=== PATIENT | male | born 1945 | race Caucasian/White ===

== ENCOUNTER → 2022-07-29 11:12 | Outpatient (BNVA) | payer MEDICARE, SELFPAY | PROVIDERS: PCP Family Medicine; Visit Provider Physician Assistant | DX: Z86.010 Personal history of colon polyps (principal) | CPT/HCPCS: 99202 ==

== ENCOUNTER 2023-02-10 05:59 | Day surgery (SDC) | payer MEDICARE, SELFPAY ==
[2022-12-03 15:22] VITALS: BMI 25.9
--- NOTE | 2023-02-09 10:49 | HO.ANESPROP2 ---
HPI - Anesthesia Eval Consult details Narrative: 77yo M for Colonoscopy PMFSH Active Problems Active Problems: All Active Problems (Updated 02/09/23 @ 10:04 by Isha Best) History of colon polyps (Acute) Past Medical History Medical History Fatty liver History of COVID-19 Asbestos exposure Surgical History Surgical History (Updated 02/15/23 @ 10:08 by Joelle Asher) Hx of colonoscopy History of cataract surgery History of thoracotomy Social History Social History Household Members: Family Alcohol intake: current Alcohol intake frequency: holidays/special occasions only Patient Tobacco Use Status: Former Tobacco user Quit Date: 30 years ago Meds Allergies Allergy/AdvReac Type Severity Reaction Status Date / Time No Known Allergies Allergy Verified 07/29/22 11:19 Home Medications Medication Instructions Recorded Confirmed Last Taken Type cholecalciferol (vitamin D3) 25 25 mcg PO DAILY 07/29/22 12/03/22 Unknown History mcg (1,000 unit) capsule coenzyme Q10 100 mg capsule 100 mg PO DAILY 07/29/22 12/03/22 Unknown History (CoQ-10) multivitamin 1 tab PO DAILY 07/29/22 12/03/22 Unknown History Exam Exam Date and Time: February 09, 2023 1049 Height,Weight and Vital Signs: Height 6 ft 2 in Weight 91.626 kg Assessment and Plan Assessment Anesthesia Assessment: Chart Reviewed
[2023-02-10 06:17] VITALS: BP 145/92; PULSE 64; RESP 18; TEMP 36.2; O2SAT 96; BMI 26.1
[2023-02-10] MEDS: Lactated Ringers 1,000 ML 100 ML IVCONT (06:37)
--- NOTE | 2023-02-10 07:27 | P.CONAN_ITS ---
[facility] Active Problems Active Problems: All Active Problems (Updated 02/09/23 @ 10:04 by Isha Best) History of colon polyps (Acute) Past Medical History Medical History Fatty liver History of COVID-19 Asbestos exposure Functional capacity: independent ambulation Family History Family history of problems with anesthesia: No Surgical History Surgical History History of cataract surgery History of thoracotomy History of Problems with Anesthesia: No Social History Social History Household Members: Family Alcohol intake: current Alcohol intake frequency: holidays/special occasions only Patient Tobacco Use Status: Former Tobacco user Quit Date: 30 years ago Use of substances other than those prescribed or required for medical reasons: No Are you DNR?: No Advance Directives: No Advance Directives Information Provided: Yes Meds Allergies Allergy/AdvReac Type Severity Reaction Status Date / Time No Known Allergies Allergy Verified 07/29/22 11:19 Active Medications: Current Medications Lactated Ringer's (Lr) 1,000 mls @ 100 mls/hr IVCONT .Q10H MC Last Admin: 02/10/23 06:37 Dose: 100 mls/hr Home Medications Medication Instructions Recorded Confirmed Last Taken Type cholecalciferol (vitamin D3) 25 25 mcg PO DAILY 07/29/22 12/03/22 Unknown History mcg (1,000 unit) capsule coenzyme Q10 100 mg capsule 100 mg PO DAILY 07/29/22 12/03/22 Unknown History (CoQ-10) multivitamin 1 tab PO DAILY 07/29/22 12/03/22 Unknown History Exam Exam Date and Time: February 10, 2023 0727 Height,Weight and Vital Signs: Height 6 ft 2 in Weight 92.079 kg Last Vital Signs Temp 97.2 F 02/10/23 06:17 Pulse 64 02/10/23 06:17 Resp 18 02/10/23 06:17 BP 145/92 H 02/10/23 06:17 Pulse Ox 96 02/10/23 06:17 O2 Del Method Room Air 02/10/23 06:17 Airway Mallampati Class: II TM Dist: >3cm Neck ROM: Full Heart: RRR Lungs: CTA Assessment and Plan Final Anesthetic Review Family History of Problems with Anesthesia: No History of Problems with Anesthesia: No NPO: Yes ASA Class: II Final Preanesthetic Review: Meds/Allgs Chart Reviewed, Consent Obtained/Reviewed and Anes Risks/Benef Reviewed Patient Risk: Low Procedure Risk: Low Anesthetic Plan Anesthetic Plan: MAC: Disposition: Standard PACU
--- NOTE | 2023-02-10 07:48 | MHC.SHP ---
Pre-Procedural Eval Section A Date of Service: 02/10/23 Section B Chief Complaint: Personal history of colonic polyps Details of Present Illness: History of thoracotomy Relevant Family History (Specify if Yes): No Relevant Social History: None Present Medications: see Short Stay Collaborative assessment Medical History: No relevant PMH Allergies: Allergies Allergy/AdvReac Type Severity Reaction Status Date / Time No Known Allergies Allergy Verified 07/29/22 11:19 Review of Systems Review of Systems Comment: Ten point ROS negative Exam Exam Comment: Gen appear: No acute distress HEENT: no icterus Chest: No overt resp distress Abd: soft, nontender, nondistended Psych: Stable affect, answering questions appropriately Neuro: A/Ox3 noted to move all extremities spontaneously Ext: no peripheral edema Plan Diagnosis/Plan: Unchanged I have reviewed the history and physical and performed a pertinent physical examination on my patient. No changes have occurred unless specified. Time Spent With Patient Time: Total time managing care of this patient today ____ minutes.
--- NOTE | 2023-02-10 07:49 | P.OP_ITS ---
Operative Note Operative Note Date of Service: 02/10/23 Narrative: Procedure: Colonoscopy Indication: Personal history of polyps Endoscopist: Libertad Conti MD Anesthesia Provider: Dr Lyly De La Garza Anesthesia type: MAC Instrument: Olympus [id number]-[id number] Consent: Indication, risks vs benefits, and alternatives were discussed with the patient who gave written informed consent to proceed. EKG, pulse, pulse oximetry and blood pressure were monitored throughout the procedure. Please see anesthesia flowsheet. Procedure: The patient was brought to the procedure room and placed in the left lateral decubitus position. IV medications were administered by the anesthesia provider in attendance. A digital rectal exam was performed which was normal. A distal attachment cap was affixed to the tip of the colonoscope which was then inserted through the anus and advanced through the colon to the cecum at 80 cm,and terminal ileum. Ileocecal valve and appendiceal orifice were identified. Mucosa was carefully examined under high definition white light as the instrument was slowly withdrawn in a retrograde panoramic fashion. Retroflexion was performed in rectum. The procedure was not difficult. There were no immediate obvious complications. The quality of the prep was BBPS: 2+2+3 = adequate Withdrawal time 12 minutes. Limitations: No limitations. Findings: Mucosa: Normal to cecum and terminal ileum. Protruding lesions: * Medium internal hemorrhoids without stigmata of recent bleeding. Excavated lesions: * Severe diverticulosis of left sided colon. Impression: 1. Normal colon and terminal ileummucosa 2. Diverticulosis 3. Internal hemorrhoids Recommendations: - Repeat colonoscopy in 10 years may be considered for CRC screening if patient in good health.
[2023-02-10 08:32] VITALS: BP 129/87; PULSE 69; RESP 16; TEMP 36.2; O2SAT 96
[2023-02-10 08:47] VITALS: BP 138/92; PULSE 63; RESP 16; O2SAT 98
[2023-02-10 09:02] VITALS: BP 156/87; PULSE 60; RESP 18; TEMP 36.3; O2SAT 98
--- NOTE | 2023-02-10 10:08 | HO.POSTANES ---
Post Anesthesia Evaluation Post Anesthesia Evaluation Date of Service: 02/10/23 Vital Signs: Vital Signs Temp Pulse Resp BP Pulse Ox O2 Del Method 02/10/23 09:02 97.4 F 60 18 156/87 H 98 Room Air 02/10/23 08:47 63 16 138/92 H 98 Room Air 02/10/23 08:32 97.2 F 69 16 129/87 96 Room Air 02/10/23 06:17 97.2 F 64 18 145/92 H 96 Room Air Anesthesia: Monitored Mental Status: Awake Pain Control: Satisfactory Nausea/Vomiting: None Hydration: Adequate Anesthesia-Related Issues: No Anes. Related Issues
== END 2023-02-10 09:35 | disposition home or self-care (01) ==
PROVIDERS: PCP Family Medicine; Visit Provider Internal Medicine
PROC: 0DJD8ZZ Inspection of Lower Intestinal Tract, Via Natural or Artificial Opening Endoscopic (ICD-10-PCS; CPT 45378; principal; 2023-02-10 07:30)
DX: Z12.11 Encounter for screening for malignant neoplasm of colon (principal); K57.30 Diverticulosis of large intestine without perforation or abscess without bleeding; K64.8 Other hemorrhoids; Z86.010 Personal history of colon polyps; K76.0 Fatty (change of) liver, not elsewhere classified; Z87.891 Personal history of nicotine dependence; Z77.090 Contact with and (suspected) exposure to asbestos; Z86.16 Personal history of COVID-19; Z98.890 Other specified postprocedural states
CPT/HCPCS: G0105

== ENCOUNTER → 2023-02-10 05:59 | Outpatient (BNV) | payer MEDICARE, SELFPAY | PROVIDERS: PCP Family Medicine; Visit Provider Internal Medicine | DX: Z12.11 Encounter for screening for malignant neoplasm of colon (principal); Z86.010 Personal history of colon polyps; K64.8 Other hemorrhoids; K57.30 Diverticulosis of large intestine without perforation or abscess without bleeding | CPT/HCPCS: G0105 ==

== ENCOUNTER 2023-02-21 07:27 | Outpatient (AMB) | payer MEDICARE, SELFPAY ==
--- NOTE | 2023-02-21 07:32 | A.OFFVIS_ITS ---
Intake Vital Signs 02/21/23 07:36 Height 6 ft 2 in Weight 203 lb BMI 26.1 BP 125/89 Blood Pressure Location Lt brachial Position Sitting Pulse 73 Intake Visit Reasons: s/p colon- [place] Intake Note: Patient follow up for Colonoscopy results. Patient denies any GI issues. 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 Conti-02/10/23 Reviewed procedure report and recommendations He has a HFD-normal bowel pattern Never had an episode of diverticulitis No GO or general complaints PFSH Medical History (Updated 02/21/23 @ 08:07 by Radha Sanchez PA-C) Fatty liver History of COVID-19 Asbestos exposure Surgical History Hx of colonoscopy History of cataract surgery History of thoracotomy Social History Household Members: Family Alcohol intake: current Alcohol intake frequency: holidays/special occasions only Patient Tobacco Use Status: Former Tobacco user Quit Date: 30 years ago Review of Systems Const All systems reviewed & are unremarkable except as noted in HPI and below Physical Exam Vital Signs: Last Vital Signs Pulse 73 02/21/23 07:36 BP 125/89 02/21/23 07:36 BMI result Body Mass Index 26.1 Const General: cooperative, healthy appearing, comfortable and no acute distress Orientation/consciousness: patient oriented x3 Limitations: no limitations Resp Effort & Inspection: normal respiratory effort and able to speak in complete sentences Skin General skin exam: no rashes or lesions noted Neuro General: patient oriented x3 Extrem General: Yes full ROM Psych Appearance: grossly normal and well kempt Mental Status: mental status grossly normal Speech and movement: Normal speech and movement present Affect: normal affect Attitude: cooperative Thought content: Normal thought content present Insight: Good insight present (Psych) Judgement: Good judgement present (Psych) Results Reviewed Results Reviewed: Mucosa: Normal to cecum and terminal ileum. Protruding lesions: * Medium internal hemorrhoids without stigmata of recent bleeding. Excavated lesions: * Severe diverticulosis of left sided colon. Impression: 1. Normal colon and terminal ileummucosa 2. Diverticulosis 3. Internal hemorrhoids Recommendations: - Repeat colonoscopy in 10 years may be considered for CRC screening if patient in good health. Assessment & Plan Assessment & Plan (1) Diverticulosis large intestine w/o perforation or abscess w/bleeding: Code(s): K57.31 - Diverticulosis of large intestine without perforation or abscess with bleeding Plan: [facility] ER protocol (2) History of colon polyps: Comment: no polyps Code(s): Z86.010 - Personal history of colonic polyps Patient Instructions: A very pleasant -78 y/o alert- gent hx colon polyps Reviewed procedure reportt- recommendations Opportunity for questions Maintain [facility] ER protocol for diverticular dz, Coding Level of Care Code Est Pt Level 3 (51011) Diagnoses Diverticulosis large intestine w/o perforation or abscess w/bleeding K57.31 History of colon polyps Z86.010 Time Spent (min) 20
[2023-02-21 07:36] VITALS: BP 125/89; PULSE 73; BMI 26.1
== END 2023-02-21 08:50 | disposition home or self-care (01) ==
PROVIDERS: PCP Family Medicine; Visit Provider Physician Assistant
DX: K57.31 Diverticulosis of large intestine without perforation or abscess with bleeding (principal); Z86.010 Personal history of colon polyps
CPT/HCPCS: 99213

== ENCOUNTER → 2023-02-21 07:27 | Outpatient (BNVA) | payer MEDICARE, SELFPAY | PROVIDERS: PCP Family Medicine; Visit Provider Physician Assistant | DX: K57.31 Diverticulosis of large intestine without perforation or abscess with bleeding (principal); Z86.010 Personal history of colon polyps | CPT/HCPCS: 99212 ==